=== PATIENT | female | born 2005 | race Two or more races ===

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

== ENCOUNTER 2025-01-27 17:06 | Emergency (ER) | payer MEDICAID, SELFPAY ==
[2025-01-27 17:19] VITALS: BP 118/74; PULSE 91; RESP 18; TEMP 36.8; O2SAT 99; BMI 30.9
--- NOTE | 2025-01-27 17:27 | XR_ITS ---
Examination: Abdomen sonogram, Limited Date and time of exam: January 27, 2025, 1912 hours INDICATIONS: Right upper abdominal pain beginning this morning Technique: Real-time hansen scale transabdominal sonographic images of the upper abdomen obtained. Findings: Absent gallbladder Common bile duct 0.55 cm no stones Pancreatic head 2.1 cm Liver 15.0 cm no liver lesions Normal hepatopedal portal venous flow Patent IVC IMPRESSION: No common bile stones Normal liver
--- NOTE | 2025-01-27 17:27 | XR_ITS ---
Examination: Complete OB ultrasound, less than 14 weeks, transabdominal Date and time of exam: January 27, 2025, 1859 hours INDICATIONS: Pelvic pain today recent positive test Technique: Obstetrical ultrasound images less than 14 weeks performed via transabdominal imaging Findings: A normal shaped single intrauterine gestation is present in the uterus. CRL 0.32 cm corresponds to 6 week 0 day gestational age Cardiac motion 189 bpm Ultrasonographic survey of visible and placental structures unremarkable. Amniotic fluid volume appears appropriate for this estimated gestational age. Right ovary 2.4 cm arterial flow 20 mm corpus luteum cyst Left ovary obscured by bowel gas IMPRESSION: Viable intrauterine gestation 6 weeks 0 days.
--- NOTE | 2025-01-27 17:28 | EDRME_ITS ---
Rapid Medical Screening Exam [facility] Arrival date/time: 01/27/25 17:06 20-year-old female with no known medical history presents to the emergency room with a chief complaint of right upper quadrant abdominal pain and lower back pain x 3 days. Patient is currently 7 weeks . She is a G1, P0. Patient denies any dysuria or vaginal bleeding. I have greeted and performed a focused initial assessment of this patient. A comprehensive ED assessment and evaluation of the patient, analysis of all test results, and completion of the medical decision making process will be conducted by additional ED providers. Chief Complaint: Abdominal Pain Time Seen by Provider: 01/27/25 17:16 Vital signs: Vital Signs Temperature 98.2 F 01/27/25 17:19 Pulse Rate 91 01/27/25 17:19 Respiratory Rate 18 01/27/25 17:19 Blood Pressure 118/74 01/27/25 17:19 Pulse Oximetry (%) 99 01/27/25 17:19 Oxygen Delivery Method Room Air 01/27/25 17:19 Vital signs reviewed by provider: Yes
[2025-01-27 17:40] LABS: Basophils # (Auto) 0.1 Thou/mm3 (0.0-0.2); Basophils % (Auto) 1 % (0-2.5); Eosinophils # (Auto) 0.4 Thou/mm3 (0.0-0.5); Eosinophils % (Auto) 3 % (0-10); Hematocrit 38.9 % (36.0-46.0); Hemoglobin 13.1 g/dL (12.0-16.0); Immature Granulocytes Auto 0.05 Thou/mm3 (0.00-0.00); Lymphocytes # (Auto) 2.1 Thou/mm3 (1.0-4.8); Lymphocytes % (Auto) 15 % (10-50); Mean Corpuscular HGB Conc 33.7 g/dl (31.0-37.0); Mean Corpuscular Hemoglobin 30.2 pg (25.0-35.0); Mean Corpuscular Volume 90 fL (80-100); Monocytes # (Auto) 0.8 Thou/mm3 (0.0-0.8); Monocytes % (Auto) 6 % (0-12); Neutrophils # (Auto) 10.7 Thou/mm3 (1.8-7.7); Neutrophils % (Auto) 76 % (37-80); Nucleated Red Blood Cell # 0.00 Thou/mm3 (0.00-0.00); Nucleated Red Blood Cell % 0 /100 WBC (0); Platelet Count 395 Thou/mm3 (140-440); RDW Standard Deviation 39.8 fL (36.4-46.3); Red Blood Count 4.34 Miln/mm3 (4.00-5.20); White Blood Count 14.1 Thou/mm3 (4.5-11.0)
[2025-01-27 18:03] LABS: Alanine Aminotransferase 22 U/L (10-49); Albumin, Serum 4.6 gm/dL (3.5-5.0); Albumin/Globulin Ratio 1.6 (1.2-2.2); Alkaline Phosphatase 100 U/L (46-116); Anion Gap 9 (7-16); Aspartate Amino Transferase 19 U/L (0-34); BUN/Creatinine Ratio 9 Ratio (12-20); Bilirubin,Total 0.2 mg/dL (0.3-1.2); Blood Urea Nitrogen 6 mg/dL (9-23); Calcium 9.4 mg/dL (8.3-10.6); Calcium (Corrected) 9.4 mg/dL (8.5-10.1); Carbon Dioxide 23.6 mMol/L (20.0-31.0); Chloride 106 mMol/L (98-107); Creatinine (Component) 0.7 mg/dL (0.6-1.3); Estimated Creatinine Clearance 127.9 mL/min (>60); Globulin 2.9 gm/dL (2.3-3.5); Glucose 89 mg/dL (74-106); Lipase 25 U/L (12-53); Osmolality,Calculated 274 (275-295); Potassium 4.4 mMol/L (3.4-5.1); Sodium 139 mMol/L (136-145); Total Protein 7.5 gm/dL (5.7-8.2); eGFR > 60 See Note
[2025-01-27 18:35] LABS: Beta HCG,Quantitative 53132 mIU/mL (<5.0)
[2025-01-27 18:42] LABS: Collection Type, Urine Clean Catch
[2025-01-27 18:47] LABS: Bacteria,Urine Rare; Bilirubin,Urine Negative (Negative); Blood,Urine Negative (Negative); Clarity,Urine Clear (Clear/Hazy); Color,Urine Lt-Yellow (Lt Yel-Yel); Glucose, Urine Negative (Negative); Ketones,Urine Negative (Negative); Leukocyte Esterase,Urine Positive (Negative); Nitrite,Urine Negative (Negative); PH,Urine 6.5 (5.0-7.0); Protein,Urine Negative (Neg - Trace); RBC,Urine 4 /hpf (0-3); Specific Gravity,Urine 1.025 (1.001-1.035); Squamous Epithelial Cell,Urine 11 /hpf (0-5); Urobilinogen,Urine 2.0 mg/dL (0.0-1.0); WBC,Urine 5 /hpf (0-5)
--- NOTE | 2025-01-27 20:07 | EDNOTE_ITS ---
ED Abdominal Pain RME/HPI General Chief Complaint: Abdominal Pain Stated complaint: 7 weeks OB, abdominal pain Time seen by provider: 01/27/25 17:16 Arrival date/time: 01/27/25 17:06 RME / HPI RME / HPI narrative: 20-year-old female with no known medical history presents to the emergency room with a chief complaint of right upper quadrant abdominal pain and lower back pain x 3 days. Patient is currently 7 weeks . She is a G1, P0. Patient denies any dysuria or vaginal bleeding. Denies any fever denies any other complaints no medication was taken prior to arrival. Related Data Previous Rx's ?Medication ?Instructions ?Recorded doxylamine 10 mg-pyridoxine (vit 1 tab PO BID PRN naus ea and 01/27/25 B6) 10 mg tablet,delayed release vomiting #30 tabs (Diclegis) Allergies Allergy/AdvReac Type Severity Reaction Status Date / Time No Known Allergies Allergy Verified 01/27/25 17:12 Review of Systems Review of Systems Narrative Review of Systems: Review of system reviewed and within normal limits except mentioned in HPI ED Exam Narrative Physical exam: VITAL SIGNS: Reviewed. GENERAL APPEARANCE: Alert and interactive, follows commands, no acute distress, HEAD AND FACE: Non-traumatic. ENT: PERRL, pink conjunctivitis, eyelid no trauma, Mucous membrane moist. NECK: Supple, nontender, no nuchal rigidity. CHEST: No tenderness, no crepitus, no paradoxical movement, no retractions. LUNGS: Clear, well ventilated, symmetric, no rales, no wheezing, no ronchi, no stridor, good breath sounds bilaterally. HEART: Regular rate, regular rhythm, no murmur, no gallops. ABDOMEN: Soft, positive bowel sounds, nondistended, no guarding, nontender, no rebound, no masses, RECTAL: Deferred. GENITAL: Deferred. NEUROLOGICAL: Gross motor function intact sensory function intact, Appropriate for age. MUSCULOSKELETAL: low back nontender, full range of motion. EXTREMITIES: Nontender, full range of motion. SKIN: Color pink, dry, no rash, no lacerations, no abrasions, no contusions. LYMPHATICS: Deferred. Course Quality Measures none Orders Category Date Time Status US OB <= 14 weeks fetus Stat Exams 01/27/25 17:27 Completed US gall bladder Stat Exams 01/27/25 17:27 Completed ABO/RH Type Stat Lab 01/27/25 17:31 Completed Beta HCG,Quantitative Stat Lab 01/27/25 17:31 Completed CBC Stat Lab 01/27/25 17:31 Completed CMP [Comprehensive Metabolic Panel] Stat Lab 01/27/25 17:31 Completed Lipase Stat Lab 01/27/25 17:31 Completed UA [Urinalysis] Stat Lab 01/27/25 18:10 Completed Vital Signs Vital signs: Vital Signs Temperature 98.2 F 01/27/25 17:19 Pulse Rate 91 01/27/25 17:19 Respiratory Rate 18 01/27/25 17:19 Blood Pressure 118/74 01/27/25 17:19 Pulse Oximetry (%) 99 01/27/25 17:19 Oxygen Delivery Method Room Air 01/27/25 17:19 Abdominal Pain MDM MDM Narrative MDM Narrative:: 20-year-old female with no known medical history presents to the emergency room with a chief complaint of right upper quadrant abdominal pain and lower back pain x 3 days. Patient is currently 7 weeks . She is a G1, P0. Patient denies any dysuria or vaginal bleeding. Denies any fever denies any other complaints no medication was taken prior to arrival. On reevaluation, patient told me that her epigastric pain is totally gone. Patient's workup today all came back normal including normal gallbladder ultrasound. Ultrasound of the OB also showed single live intrauterine gestation about 6 weeks. Patient's workup CBC CMP urinalysis all came back unremarkable. Patient was advised to avoid drinking soda drinking juice or eating, fat, spicy food. Patient will be sent home on Diclegis for nausea. She was advised to closely follow-up with [facility]. Patient data External records reviewed:: None Clinical information provided by:: patient Social determinants that could affect healthcare access:: none Patient has the following chronic illnesses:: None How is presenting disease/condition affected by chronic disease/condition?: no chronic disease Evaluation data The following diagnostics were reviewed and interpreted by me:: lab results and radiology exam(s) Lab and/or radiology exams considered but not ordered:: None Interpretation Summary: See results MDM Medications / Prescriptions Medications or Prescriptions considered but not ordered:: None Medication administrations:: None Consultations Consultation(s) initiated? (list below): No Diagnosis Differential diagnosis abdominal pain: abdominal pain and gastroenteritis Most likely diagnosis given after review of the tests above:: Epigastric pain, 6 weeks Admission Indicated Admission indicated?: not indicated Admission Request Was there a request for admission?: No Disposition Plan Disposition Plan: Discharge Discharge Attestation Discharge Attestation: The patient and all family members were given an opportunity to ask questions and understood the discharge instructions. Discharge instructions specifically effects, indications for sooner follow up or return to the emergency department, and the expected course of current diagnosis. Patient condition: Stable Discharge Plan Plan Patient Disposition: HOME (Self Care) Discharge Disposition comment: Stable Prescriptions/Referrals Prescriptions/Med Rec: New doxylamine-pyridoxine (vit B6) [Diclegis] 10-10 mg tablet,delayed release (DR/EC) 1 tab PO BID PRN (Reason: nausea and vomiting) Qty: 30 0RF Referrals: No Primary/Family,Physician [Primary Care Provider] - In 1 week Problem List Clinical Impression: Nausea & vomiting, Acute epigastric pain, Patient/Caregiver Discharge Instructions Discharge Activity: activity as tolerated Education Materials: First Trimester Additional Instructions: Thank you for the opportunity for serving you today. You are stable for discharged . You are advised to: Follow-up with your PCP in 1 to 2 days Return to ED for worsening of symptoms Increase oral fluids Take medication as prescribed Print Language: Thai Stand Alone Forms: Terri Award Info., Patient Portal Info Letter DEV/SUZIE Supervising Physician DEV/SUZIE Supervising Physician: Dr Roach
== END 2025-01-27 20:20 | disposition home or self-care (01) ==
PROVIDERS: Nurse Practitioner Family; Emergency Provider Emergency Medicine
DX: O26.891 Other specified pregnancy related conditions, first trimester (principal); O21.9 Vomiting of pregnancy, unspecified; R10.13 Epigastric pain; R10.11 Right upper quadrant pain; Z3A.01 Less than 8 weeks gestation of pregnancy
CPT/HCPCS: 36415; 76705; 76801; 80053; 81001; 83690; 84702; 85025; 86900; 86901; 99283

== ENCOUNTER → 2025-02-07 | Outpatient (BNVA) | payer MEDICAID, SELFPAY | END | disposition home or self-care (01) | PROVIDERS: PCP Nurse Practitioner Family; Referring Provider Nurse Practitioner Family; Visit Provider Nurse Practitioner Family | DX: Z00.01 Encounter for general adult medical examination with abnormal findings (principal); Z3A.09 9 weeks gestation of pregnancy; E66.09 Other obesity due to excess calories; Z68.30 Body mass index [BMI] 30.0-30.9, adult; Z13.220 Encounter for screening for lipoid disorders; Z13.29 Encounter for screening for other suspected endocrine disorder | CPT/HCPCS: 99173; 99214 ==

== ENCOUNTER 2025-02-10 20:21 | Emergency (ER) | payer MEDICAID, SELFPAY ==
[2025-02-10 20:24] VITALS: BMI 30.1
[2025-02-10 21:46] VITALS: BP 133/68; PULSE 83; RESP 18; TEMP 36.9; O2SAT 99
--- NOTE | 2025-02-10 22:09 | XR_ITS ---
Examination: Complete OB ultrasound, less than 14 weeks, transabdominal Date and time of exam: February 10, 2025 at 10:26 PM INDICATIONS: Vaginal bleeding today Technique: Obstetrical ultrasound images less than 14 weeks performed via transabdominal imaging Findings: A normal shaped single intrauterine gestation is present in the uterus. CRL 2.0 cm corresponds to 8 weeks 4 days gestational age Cardiac motion 167 BPM Ultrasonographic survey of visible and placental structures unremarkable. Amniotic fluid volume appears appropriate for this estimated gestational age. Right ovary 3.6 cm arterial flow 18 mm cyst Left ovary 2.4 cm marker flow IMPRESSION: Viable intrauterine gestation 8 weeks 4 days.
--- NOTE | 2025-02-10 22:10 | PD.EDRME ---
Rapid Medical Screening Exam [facility] Arrival date/time: 02/10/25 20:21 20F at approximately 9 weeks and with no significant PMH presents to ED with 1 day of pelvic pain/cramping and vaginal spotting. Patient denies dysuria and recently been checked for STDs. Chief Complaint: General Adult/Misc Complain Time Seen by Provider: 02/11/25 02:47 Vital signs: Vital Signs Temperature 98.4 F 02/10/25 21:46 Pulse Rate 83 02/10/25 21:46 Respiratory Rate 18 02/10/25 21:46 Blood Pressure 133/68 H 02/10/25 21:46 Pulse Oximetry (%) 99 02/10/25 21:46 Oxygen Delivery Method Room Air 02/10/25 21:46
[2025-02-10 22:54] LABS: Collection Type, Urine Clean Catch
[2025-02-10 23:01] LABS: Basophils # (Auto) 0.0 Thou/mm3 (0.0-0.2); Basophils % (Auto) 0 % (0-2.5); Eosinophils # (Auto) 0.2 Thou/mm3 (0.0-0.5); Eosinophils % (Auto) 2 % (0-10); Hematocrit 36.5 % (36.0-46.0); Hemoglobin 12.5 g/dL (12.0-16.0); Immature Granulocytes Auto 0.04 Thou/mm3 (0.00-0.00); Lymphocytes # (Auto) 1.8 Thou/mm3 (1.0-4.8); Lymphocytes % (Auto) 14 % (10-50); Mean Corpuscular HGB Conc 34.2 g/dl (31.0-37.0); Mean Corpuscular Hemoglobin 30.3 pg (25.0-35.0); Mean Corpuscular Volume 89 fL (80-100); Monocytes # (Auto) 0.6 Thou/mm3 (0.0-0.8); Monocytes % (Auto) 4 % (0-12); Neutrophils # (Auto) 10.4 Thou/mm3 (1.8-7.7); Neutrophils % (Auto) 80 % (37-80); Nucleated Red Blood Cell # 0.00 Thou/mm3 (0.00-0.00); Nucleated Red Blood Cell % 0 /100 WBC (0); Platelet Count 371 Thou/mm3 (140-440); RDW Standard Deviation 39.0 fL (36.4-46.3); Red Blood Count 4.12 Miln/mm3 (4.00-5.20); White Blood Count 12.9 Thou/mm3 (4.5-11.0)
[2025-02-10 23:11] LABS: Bacteria,Urine Rare; Bilirubin,Urine Negative (Negative); Blood,Urine Negative (Negative); Clarity,Urine Clear (Clear/Hazy); Color,Urine Colorless (Lt Yel-Yel); Glucose, Urine Negative (Negative); Hyaline Casts,Urine < 1 /hpf (0-1); Ketones,Urine Trace (Negative); Leukocyte Esterase,Urine Positive (Negative); Nitrite,Urine Negative (Negative); PH,Urine 6.5 (5.0-7.0); Protein,Urine Negative (Neg - Trace); RBC,Urine 1 /hpf (0-3); Specific Gravity,Urine 1.008 (1.001-1.035); Squamous Epithelial Cell,Urine 4 /hpf (0-5); Urobilinogen,Urine Negative mg/dL (0.0-1.0); WBC,Urine 11 /hpf (0-5)
[2025-02-10 23:41] LABS: Alanine Aminotransferase 65 U/L (10-49); Albumin, Serum 4.5 gm/dL (3.5-5.0); Albumin/Globulin Ratio 1.7 (1.2-2.2); Alkaline Phosphatase 100 U/L (46-116); Anion Gap 11 (7-16); Aspartate Amino Transferase 30 U/L (0-34); BUN/Creatinine Ratio 8 Ratio (12-20); Bilirubin,Total 0.4 mg/dL (0.3-1.2); Blood Urea Nitrogen < 5 mg/dL (9-23); Calcium 9.4 mg/dL (8.3-10.6); Calcium (Corrected) 9.4 mg/dL (8.5-10.1); Carbon Dioxide 21.4 mMol/L (20.0-31.0); Chloride 107 mMol/L (98-107); Creatinine (Component) 0.6 mg/dL (0.6-1.3); Estimated Creatinine Clearance 147.1 mL/min (>60); Globulin 2.7 gm/dL (2.3-3.5); Glucose 80 mg/dL (74-106); Osmolality,Calculated 273 (275-295); Potassium 4.4 mMol/L (3.4-5.1); Sodium 139 mMol/L (136-145); Total Protein 7.2 gm/dL (5.7-8.2); eGFR > 60 See Note
[2025-02-11 01:23] LABS: Beta HCG,Quantitative 161233 mIU/mL (<5.0)
--- NOTE | 2025-02-11 02:49 | EDNOTE_ITS ---
ED Female Urogenital RME/HPI General Chief complaint: General Adult/Misc Complain Stated complaint: VAGINAL DISCHARGED Time Seen by Provider: 02/11/25 02:47 Arrival date/time: 02/10/25 20:21 20F at approximately 9 weeks and with no significant PMH presents to ED with 1 day of pelvic pain/cramping and vaginal spotting (brownish color and not foul-smelling). Patient denies dysuria and recently been checked for STDs. Limitations: no limitations RME / HPI RME / HPI Narrative: 02/10/25 20:21 Related Data Home Medications ?Medication ?Instructions ?Recorded ?Confirmed [id number] 3 fatty no.1 27 cap PO 02/07/2511/27 mg-1 mg-300 mg capsule Previous Rx's ?Medication ?Instructions ?Recorded cephalexin 500 mg capsule 500 mg PO TID 5 days #15 cap s 02/11/25 Allergies Allergy/AdvReac Type Severity Reaction Status Date / Time No Known Allergies Allergy Verified 02/10/25 20:22 Review of Systems Review of Systems Systems Reviewed: All systems reviewed, normal except as documented Constitutional Constitutional: Reports system reviewed and no additional complaints, except as documented, Denies fever(s) and Denies headache(s) ENT Ears, Nose, Mouth, and Throat: Denies disequilibrium and Denies headache(s) Cardiovascular Cardiovascular: Reports system reviewed and no additional complaints, except as documented, Denies chest pain and Denies dyspnea Respiratory Respiratory: Reports system reviewed and no additional complaints, except as documented, Denies cough and Denies dyspnea Gastrointestinal Gastrointestinal: Reports system reviewed and no additional complaints, except as documented, Denies abdominal pain, Denies nausea and Denies vomiting Genitourinary Genitourinary: Reports as per HPI, Reports abnormal vaginal bleeding and Reports pelvic pain Neurologic Neurologic: Reports system reviewed and no additional complaints, except as documented, Denies confusion, Denies disequilibrium and Denies headache(s) Psychiatric Psychiatric: Denies confusion Past Medical History Past Medical History NEUROLOGIC: Negative Neurological Disorders or Seizures CARDIAC: Negative Cardiac Disorders or Congestive Heart Failure RESPIRATORY: Negative Chronic Obstructive Pulmonary Disease (COPD) GASTROINTESTINAL: Positive Gastrointestinal Disorders and Gall Bladder Disease GENITOURINARY: Negative Genitourinary Disorders or Renal Disease MUSCULOSKELETAL: Negative Musculoskeletal Disorders ENDOCRINE: Negative Endocrine Disorders, Diabetes Mellitus Type 1 or Diabetes Mellitus Type 2 HEMATOLOGIC: Negative Blood Disorders, Anemia or Clotting Problems OTHER HISTORY: Negative Hospitalization, Falls, Blood Transfusions, Anesthesia Reactions, Chicken Pox, Measles or Cancer Family History FAMILY HISTORY: Positive Family Surgery; Negative Family Psychiatric Problems, Family Respiratory Disorders, Family Cardiac Disorders, Family Gastrointestinal Problems or Family Anesthesia Reaction Social History SMOKING STATUS: Never smoker SECOND HAND EXPOSURE: No ED Exam General Limitations: Present no limitations General appearance: Present alert and in no apparent distress Head Head exam: Present atraumatic Eye Eye exam: Present normal appearance, PERRL and EOMI ENT ENT exam: Present normal exam, normal oropharynx and mucous membranes moist Neck Neck exam: Present normal inspection, full ROM and trachea midline Chest Chest inspection: Present normal inspection and symmetric chest wall rise Respiratory Respiratory exam: Present normal lung sounds bilaterally Cardiovascular Cardiovascular exam: Present regular rate, normal rhythm and normal heart sounds Abdominal Exam Abdominal exam: Present soft and normal bowel sounds Extremities Exam Extremities exam: Present normal inspection and full ROM Back Exam Back exam: Present normal inspection and full ROM Neurological Exam Neurological exam: Present alert, oriented X3 and CN II-XII intact Psychiatric Psychiatric exam: Present normal affect and normal mood Skin Skin exam: Present warm, dry, intact and normal color Course Quality Measures none Orders Category Date Time Status US OB <= 14 weeks fetus Stat Exams 02/10/25 22:09 Completed ABO/RH Type Stat Lab 02/10/25 22:40 Completed Beta HCG,Quantitative Stat Lab 02/10/25 22:40 Completed CBC Stat Lab 02/10/25 22:40 Completed CMP [Comprehensive Metabolic Panel] Stat Lab 02/10/25 22:40 Completed UA [Urinalysis] Stat Lab 02/10/25 22:48 Completed Urine Culture Stat Lab 02/10/25 22:48 Received Vital Signs Vital signs: Vital Signs Temperature 98.4 F 02/10/25 21:46 Pulse Rate 83 02/10/25 21:46 Respiratory Rate 18 02/10/25 21:46 Blood Pressure 133/68 H 02/10/25 21:46 Pulse Oximetry (%) 99 02/10/25 21:46 Oxygen Delivery Method Room Air 02/10/25 21:46 O2 at 99% on RA and WNLs Urogenital - Female MDM Narrative MDM Narrative:: 20F at approximately 9 weeks and with no significant PMH presents to ED with 1 day of pelvic pain/cramping and vaginal spotting (brownish color and not foul-smelling). Patient denies dysuria and recently been checked for STDs. Physical exam reveals well-appearing female. Patient is afebrile, calm, and alert. US reveals normal IUP w/ FHR. Beta HCG WNLs. Minimal leukocytosis, but no anemia. UA mild WBCs. Will treat given status. A+ blood type. CMP unremarkable. Patient states she has her first OB appt next week and will follow-up with them. Patient data External records reviewed:: [facility] previous records Clinical information provided by:: patient Social determinants that could affect healthcare access:: none Patient has the following chronic illnesses:: none How is presenting disease/condition affected by chronic disease/condition?: no chronic disease Evaluation data The following diagnostics were reviewed and interpreted by me:: lab results and radiology exam(s) Lab and/or radiology exams considered but not ordered:: ordered Interpretation Summary: above Medications / Prescriptions Medications or Prescriptions considered but not ordered:: not ordered Medication administrations:: n/a Consultations Consultation(s) initiated? (list below): No Diagnosis Urogenital Female Differential Diagnosis: urinary tract infection, bacterial vaginosis, trichomoniasis, cervicitis, ovarian cyst, vaginitis, ruptured ovarian cyst, cyst of Bartholin's gland, cystitis, dysmenorrhea and other (asymptomatic bacteriuria during ) Most likely diagnosis given after review of the tests above:: asymptomatic bacteriuria during Admission Indicated Admission indicated?: not indicated Admission Request Was there a request for admission?: No Disposition Plan Disposition Plan: Discharge Discharge Attestation Discharge Attestation: The patient and all family members were given an opportunity to ask questions and understood the discharge instructions. Discharge instructions specifically effects, indications for sooner follow up or return to the emergency department, and the expected course of current diagnosis. Patient condition: Stable Discharge Plan Plan Patient Disposition: HOME (Self Care) Discharge Disposition comment: Stable Prescriptions/Referrals Prescriptions/Med Rec: New cephalexin 500 mg capsule 500 mg PO TID 5 Days Qty: 15 0RF No Action [id number] 3 fatty no.1 27-1-300 mg capsule PO Referrals: [facility] SKIRT PANEL ASSEMBLER,Keri Mckay SKIRT PANEL ASSEMBLER [Primary Care Provider] - In 1 week Problem List Clinical Impression: Asymptomatic bacteriuria during Patient/Caregiver Discharge Instructions Additional Instructions: Please follow-up with PCP/[facility]YGN within 24-48 hours and return immediately if symptoms worsen. Print Language: Uzbek Stand Alone Forms: Patient Portal Info Letter PA/COFFEE MAKER SERVICER Supervising Physician PA/COFFEE MAKER SERVICER Supervising Physician: Dr. Alvarez
[2025-02-11 02:57] VITALS: BP 99/68; PULSE 70; RESP 18; TEMP 36.7; O2SAT 99
== END 2025-02-11 03:00 | disposition home or self-care (01) ==
PROVIDERS: Physician Assistant; Emergency Provider Emergency Medicine; PCP Nurse Practitioner Family
DX: O99.891 Other specified diseases and conditions complicating pregnancy (principal); R82.71 Bacteriuria; Z3A.08 8 weeks gestation of pregnancy
CPT/HCPCS: 36415; 76801; 80053; 81001; 84702; 85025; 86900; 86901; 87077; 87086; 87186; 99283

== ENCOUNTER 2025-02-24 10:53 | Outpatient (AMB) | payer MEDICAID, SELFPAY ==
[2025-02-24 11:21] VITALS: BP 120/79; PULSE 96; RESP 17; TEMP 36.5; O2SAT 98; BMI 30.2
--- NOTE | 2025-02-24 11:21 | AMB.OBINITIA ---
Vital Signs 02/24/25 11:21 Height 1.6 m Height Method Measured Weight 77.337 kg Weight Measurement Method Standing Scale BMI 30.2 BP 120/79 Blood Pressure Source Automatic Cuff Blood Pressure Location Right Upper Arm Position Sitting Respiration 17 Pulse 96 Pulse Source Monitor Temp 97.7 F Temp Source Temporal Artery Scan Pulse Oximetry (%) 98 Oxygen Delivery Method Room Air Allergies/Home Meds Allergies & Medications Allergies No Known Allergies Allergy (Verified 02/24/25 11:22) Medication Reconciliation [id number]-bhmj-PM-omega 3 fatty no.1 27 mg-1 mg-300 mg capsule cap PO 02/07/25 [History Confirmed 02/24/25] Intake Visit Data Collection New Patient or Established: Established Patient (seen at [facility] within 3 years) Reason for Visit:: OBI Consent obtained for Telemed Visit: No Seen by Clinical Staff ONLY (RN/MA): No Clinical Manager Home Care Required: No Do You Feel Safe at Home: Yes Authorities Contacted: N/A PCP or OBGYN visit in last 3 months: Yes Date of Last PCP or OBGYN visit: 02/11/25 Hx Now: Yes Are you currently on any form of Control: No Last menstrual period: 12/09/24 Pain Present Currently: No Pain Scale Used: Spears-Rhodes/Numerical Pain scale:: 0 Smoking Status Smoking Status: Never smoker Questionnaires Covid-19 Vaccine Questionnaire Has patient been vacinated for Covid-19 Have you been vacinated for Covid-19: Yes PHQ-9 PHQ-2 Over the last 2 weeks, how often have you been bothered by any of the following problems? 1. Little interest or pleasure in doing things: not at all PHQ-9 3. Trouble falling or staying asleep, or sleeping too much: Not at all 4. Feeling tired or having little energy: Not at all 5. Poor appetite or overeating: Not at all 6. Feeling bad about yourself - or that you are a failure or have let yourself or your family down: Not at all 7. Trouble concentrating on things, such as reading the newspaper or watching television: Not at all 8. Moving or speaking so slowly that other people could have noticed? - Or the opposite - being so fidgety or restless that you have been moving around a lot more than usual: not at all 9. Thoughts that you would be better off or of hurting yourself in some way: Not at all If you checked off any problems, how difficult have these problems made it for you to do your work, take care of things at home, or get along with other people?: not difficult at all Source: Developed by Drs. Romero Morales, Gretel Scanlon, Royce Jmaes and colleagues, with an educational brittany from [employer]. Social History Living Situation History Lives With: Significant Other Housing: House Tobacco History Smoking Status: Never smoker Second Hand Smoke Exposure: No Alcohol History Alcohol Intake: Never Substance Use History Substance Use: NONE Domestic Abuse History Do You Feel Safe at Home: Yes History of Present Illness HPI Narrative 20 yo for OBI. lmp 12/09/24. EDC: 09/15/25. c/o occasional nausea. taking PNV. denies sab complaints. Denies existence of PMH. Smokes THC, stopped with . denies surgery. Happy with . 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 denies vag bleeding,no cramps, no leaking. no sab complaints, slight nausea schedule MFM anatomy scan. discuss SAB precaution, continue pnv, hydrate. . OB panel with NIPT and carrier screen. rtc 4 wk Menstrual History Menstrual reliability: definite Flow: normal Menstrual regularity: regular Monthly: Yes Age at menarche: 15 On control pills at conception: No Date of positive home test: 01/12/25 OB History : 1 Para: 0 Hx # Pregnancies: 0 Hx Total # of Abortions (Spontaneous & Elective): 0 # of Living Children: 0 Infection History & Risk Evaluation History of STDs: none HIV risk evaluation: low risk Hepatitis B risk evaluation: low risk Patient or partner has history of Genital Herpes: No Genetic Screening & History Genetic Screening/Teratology Counseling - Includes patient, baby's father, or anyone in either family with: 1. Patient's age 35 years or older as of estimated date of delivery: No 2. Thalassemia (Kuwaiti, Latvian, Mediterranean, or Background); MCV less than 80: No 3. Neural Tube Defect (Meningomyelocele, Spina Bifida, or Anencephaly): No 4. Congenital Heart Defect: No 5. Down Syndrome: No 6. Tristian-Sachs (Ashkenazi Confucianist, Cajun, Romanian Bullitt): No 7. Dot Disease (Ashkenazi Confucianist): No 8. Familial Dysautonomia (Ashkenazi Confucianist): No 9. Sickle Cell Disease or Trait (): No 10. Hemophilia or other blood disorders: No 11. Muscular Dystrophy: No 12. Cystic Fibrosis: No 13. Lamoille's Chorea: No 14. Mental Retardation/Autism: No 15. Other inherited genetic or chromosomal disorder: No 16. Maternal Metabolic Disorder (EG,TYPE 1 Diabetes, PKU): No 17. Patient or baby's father had a child with defects not listed above: No 18. Recurrent loss or a stillbirth: No 19. Medications (including supplements, vitamins, herbs or otc drugs)/illicit/recreational drugs/alcohol since last menstrual period: No 20. Any other: No Infection History 1. Live with someone with TB or exposed to TB: No 2. Rash or viral illness since last menstrual period: No 3. Hepatitis B,C: No Other (see comments) Source: [employer] Review of Systems Review of Systems Systems Reviewed: All systems reviewed, normal except as documented Exam General Limitations: no limitations General Appearance: alert, in no apparent distress, comfortable, cooperative, healthy appearing, well developed and well groomed Head Head exam: atraumatic, normocephalic and normal inspection ENT ENT exam: Present normal exam, normal oropharynx and mucous membranes moist Chest Chest inspection: Present normal inspection and symmetric chest wall rise Resp Respiratory exam: Present normal lung sounds bilaterally Card Cardiovascular exam: Present regular rate, normal rhythm and normal heart sounds Abdominal Abdominal exam: Present soft and normal bowel sounds Psych Psychiatric exam: Present normal affect and normal mood Office Procedures OB Clinic LOC & Office Proc's Nursing/Assessment Patient Status: Established Patient OB Clinic Nursing Assessment: Medication Reconciliation, Update PMH in EMR and Vital Signs OB Clinic Coordination of Care: Complex Care and Chronic Disease 1-5, Consent,records obtained, informed consent, 4+ Authorizations needed, Lab and Imaging orders and Results/Orders obtained Special Needs: Heart tones Established Patient Charge Established Patient Point Assignment: 135 Established Patient Point Charge: EP Level 4 (120-155) Assessment & Plan Diagnosis / Problem List (1) Encounter for supervision of high risk in first trimester, antepartum: Status: Acute Plan schedule mfm appt. ob panel with NIPT and carrier screen, continue pnv. discuss sab precaution, rtc 4 week Additional Plan Follow Up: 4 Weeks (obc)
== END 2025-02-24 11:44 | disposition home or self-care (01) ==
LOC: HODSOBC 10:53
PROVIDERS: PCP Nurse Practitioner Family; Referring Provider Nurse Practitioner Family; Supervising Provider Advanced Practice Midwife; Visit Provider Advanced Practice Midwife
DX: O09.91 Supervision of high risk pregnancy, unspecified, first trimester (principal); Z3A.11 11 weeks gestation of pregnancy
CPT/HCPCS: 99214; G0463

== ENCOUNTER 2025-03-27 12:53 | Outpatient (AMB) | payer MEDICAID, SELFPAY ==
[2025-03-27 13:00] VITALS: BP 120/73; PULSE 85; RESP 16; TEMP 36.6; O2SAT 98; BMI 30.7
--- NOTE | 2025-03-27 13:00 | OBCLNT_ITS ---
Vital Signs 03/27/25 13:00 Height 1.6 m Height Method Stated Weight 78.585 kg Weight Measurement Method Standing Scale BMI 30.7 BP 120/73 Blood Pressure Source Automatic Cuff Blood Pressure Location Left Upper Arm Position Sitting Respiration 16 Pulse 85 Pulse Source Monitor Temp 98 F Temp Source Oral Pulse Oximetry (%) 98 Oxygen Delivery Method Room Air Allergies/Home Meds Allergies & Medications Allergies No Known Allergies Allergy (Verified 03/27/25 13:01) Medication Reconciliation PLS-unnu-RB-omega 3 fatty no.1 27 mg-1 mg-300 mg capsule cap PO 02/07/25 [History Confirmed 03/27/25] Intake Visit Data Collection New Patient or Established: Established Patient (seen at [facility] within 3 years) Reason for Visit:: CARE Seen by Clinical Staff ONLY (RN/MA): No Client Finance Analyst Required: No Do You Feel Safe at Home: Yes Authorities Contacted: N/A PCP or OBGYN visit in last 3 months: Yes Hx Now: Yes Are you currently on any form of Control: No Pain Present Currently: No Pain Scale Used: Spears-Rhodes/Numerical Pain scale:: 0 Smoking Status Smoking Status: Never smoker Questionnaires Covid-19 Vaccine Questionnaire Has patient been vacinated for Covid-19 Have you been vacinated for Covid-19: Yes PHQ-9 PHQ-2 Over the last 2 weeks, how often have you been bothered by any of the following problems? 1. Little interest or pleasure in doing things: not at all 2. Feeling down, depressed, or hopeless: not at all Total score: 0 PHQ-9 3. Trouble falling or staying asleep, or sleeping too much: Not at all 4. Feeling tired or having little energy: Not at all 5. Poor appetite or overeating: Not at all 6. Feeling bad about yourself - or that you are a failure or have let yourself or your family down: Not at all 7. Trouble concentrating on things, such as reading the newspaper or watching television: Not at all 8. Moving or speaking so slowly that other people could have noticed? - Or the opposite - being so fidgety or restless that you have been moving around a lot more than usual: not at all 9. Thoughts that you would be better off or of hurting yourself in some way: Not at all Total score: 0 Source: Developed by Drs. Romero Morales, Gretel Scanlon, Royce James and colleagues, with an educational brittany from [employer]. 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 denies vag bleeding,no cramps, no leaking. no sab complaints, slight nausea schedule MFM jose meg scan. discuss SAB precaution, continue pnv, hydrate. . OB panel with NIPT and carrier screen. rtc 4 wk 03/27/25 -?-?-?-?-?-?-?-?-?-?-?-?- 15w 3d 78.585 kg 120/73 absent unknown 15 145 absent Doing well. Denies SAB complaints. MFM sono is pending. aFP today. Follow-up on MFM appointment. Discussed diet and weight. SAB precautions. Return in 4 weeks OB check DILAN Calculator Estimated Delivery Date Method Current WG Current Estimate 09/15/25 LMP (Certain) 15w 3d Notes Visit Date: 03/27/25 Last Updated by: Franci Lino, FARHANA A+,abs-, rpr;;nr, rub imm, hbsag-, hiv-, hc-, GC/CT-, UT-. + UTI/treated with macrobid, NIPT/carrier screen- Visit Date: 02/24/25 Last Updated by: Franci Lino CNM 20 yo . lmp 12/09/24, EDC: 07/18/24 Office Procedures OB Clinic LOC & Office Proc's Nursing/Assessment Patient Status: Established Patient OB Clinic Nursing Assessment: Medication Reconciliation, Update PMH in EMR and Vital Signs OB Clinic Coordination of Care: Complex Care and Chronic Disease 1-5, Consent,records obtained, informed consent, Education Simp Pt/Fam, 1 Ins Authorization, Lab and Imaging orders, Results/Orders obtained and Staff clarify orders Special Needs: Heart tones Established Patient Charge Established Patient Point Assignment: 150 Established Patient Point Charge: EP Level 4 (120-155) Assessment & Plan Diagnosis / Problem List (1) Encounter for supervision of high risk in second trimester, antepartum: Status: Acute Plan MFM appointment pending, discuss labs. AFP prending. discuss sab precaution, rtc 4 week obc Additional Plan Follow Up: 4 Weeks (obc)
== END 2025-03-27 14:34 | disposition home or self-care (01) ==
LOC: HODSOBC 12:53
PROVIDERS: PCP Advanced Practice Midwife; Referring Provider Advanced Practice Midwife; Supervising Provider Advanced Practice Midwife; Visit Provider Advanced Practice Midwife
DX: O09.92 Supervision of high risk pregnancy, unspecified, second trimester (principal); Z3A.15 15 weeks gestation of pregnancy
CPT/HCPCS: 99214; G0463

== ENCOUNTER 2025-04-15 20:40 | Emergency (ER) | payer MEDICAID, SELFPAY ==
[2025-04-15 20:54] VITALS: BP 118/75; PULSE 86; RESP 16; TEMP 36.8; O2SAT 99
--- NOTE | 2025-04-15 21:07 | PD.EDABDPN ---
ED Abdominal Pain RME/HPI General Chief Complaint: Abdominal Pain Stated complaint: LOWER ABD PRESSURE, 19WKS Time seen by provider: 04/15/25 20:42 Arrival date/time: 04/15/25 20:40 Limitations: no limitations RME / HPI RME / HPI narrative: 20-year-old female who is 19 weeks today complaining of abdominal and back pain x 2 days. Feels normal movement. But states the soreness since yesterday to her anterior abdomen feels like it radiates down into her vagina. No bleeding. No fever. No burning with urination. No discharge. Related Data Home Medications ?Medication ?Instructions ?Recorded ?Confirmed SVO-vbho-UB-omega 3 fatty no.1 27 cap PO 02/07/25 03/27/25 mg-1 mg-300 mg capsule Previous Rx's ?Medication ?Instructions ?Recorded acetaminophen 500 mg tablet 500 mg PO Q6H PRN fever or pain 04/15/25 (Tylenol Extra Strength) #30 tabs Allergies Allergy/AdvReac Type Severity Reaction Status Date / Time No Known Allergies Allergy Verified 04/15/25 20:41 Review of Systems Review of Systems Systems Reviewed: All systems reviewed, normal except as documented Constitutional Constitutional: Denies fever(s) Gastrointestinal Gastrointestinal: Reports as per HPI Genitourinary Genitourinary: Reports as per HPI ED Exam General Limitations: Present no limitations General appearance: Present alert and in no apparent distress Head Head exam: Present atraumatic Eye Eye exam: Present normal appearance, PERRL and EOMI Respiratory Respiratory exam: Present normal lung sounds bilaterally Cardiovascular Cardiovascular exam: Present regular rate, normal rhythm and normal heart sounds Abdominal Exam Abdominal exam: Present normal bowel sounds and other ( abdomen presenting appropriately for weeks, positive heart tones) External exam: Present other (declined exam ) Extremities Exam Extremities exam: Present normal inspection and full ROM Back Exam Back exam: Present normal inspection and full ROM Psychiatric Psychiatric exam: Present normal affect and normal mood Skin Skin exam: Present warm, dry, intact and normal color Course Quality Measures none Orders Category Date Time Status CBC Stat Lab 04/15/25 21:21 Completed CMP [Comprehensive Metabolic Panel] Stat Lab 04/15/25 21:21 Completed Lipase Stat Lab 04/15/25 21:21 Completed UA [Urinalysis] Stat Lab 04/15/25 21:57 Completed Acetaminophen Tab [Tylenol Tab] Med 04/15/25 21:07 Discontinued 650 mg PO X1 ONE Vital Signs Vital signs: Vital Signs Temperature 98.3 F 04/15/25 20:54 Pulse Rate 86 04/15/25 20:54 Respiratory Rate 16 04/15/25 20:54 Blood Pressure 118/75 04/15/25 20:54 Pulse Oximetry (%) 99 04/15/25 20:54 Oxygen Delivery Method Room Air 04/15/25 20:54 Abdominal Pain MDM MDM Narrative MDM Narrative:: Discussed abdominal pain likely related to ligamentous pain. Follow-up with PCP return to ER symptoms worsen Patient data External records reviewed:: [facility] previous records Clinical information provided by:: patient Social determinants that could affect healthcare access:: other (specify) (No PCP appointment on the weekend) Patient has the following chronic illnesses:: How is presenting disease/condition affected by chronic disease/condition?: exacerbated by Evaluation data The following diagnostics were reviewed and interpreted by me:: lab results Lab and/or radiology exams considered but not ordered:: Ultrasound considered however positive heart tones and no bleeding unlikely to change the course of treatment today Interpretation Summary: CBC, CMP, lipase all within normal limits UA showed small hematuria no bacteria Medications / Prescriptions Medications or Prescriptions considered but not ordered:: Opted against narcotics due to Medication administrations:: Medication Administration History Discontinued Medications Acetaminophen (Acetaminophen 325 Mg Tablet) 650 mg PO X1 ONE Stop: 04/15/25 21:08 Last Admin: 04/15/25 21:33 Dose: Not Given Documented By: BD Non-Admin Reason: Patient Refused See above Consultations Consultation(s) initiated? (list below): No Diagnosis Differential diagnosis abdominal pain: abdominal pain and other (UTI, demise, abdominal pain in ) Most likely diagnosis given after review of the tests above:: Abdominal pain in Admission Indicated Admission indicated?: not indicated Admission Request Was there a request for admission?: No Disposition Plan Disposition Plan: Discharge Discharge Attestation Discharge Attestation: The patient and all family members were given an opportunity to ask questions and understood the discharge instructions. Discharge instructions specifically effects, indications for sooner follow up or return to the emergency department, and the expected course of current diagnosis. Patient condition: Stable Discharge Plan Plan Patient Disposition: HOME (Self Care) Discharge Disposition comment: f/u with pcp in 2-3days Prescriptions/Referrals Prescriptions/Med Rec: New acetaminophen [Tylenol Extra Strength] 500 mg tablet 500 mg PO Q6H PRN (Reason: fever or pain) Qty: 30 0RF No Action HOK-clbm-OT-omega 3 fatty no.1 27-1-300 mg capsule PO Referrals: [facility] BUSINESS MANAGEMENT ANALYST,Keri Mckay BUSINESS MANAGEMENT ANALYST [Primary Care Provider, Family Practice] - In 1 week Problem List Clinical Impression: Abdominal pain affecting , Hematuria Patient/Caregiver Discharge Instructions Education Materials: Round Ligament Pain Print Language: Citizen Of [place] Stand Alone Forms: Terri Award Info., Patient Portal Info Letter PA/CENTER M[facility] Supervising Physician PA/CENTER [facility] Supervising Physician: Dr. Pichardo
[2025-04-15 21:26] LABS: Basophils # (Auto) 0.1 Thou/mm3 (0.0-0.2); Basophils % (Auto) 1 % (0-2.5); Eosinophils # (Auto) 0.4 Thou/mm3 (0.0-0.5); Eosinophils % (Auto) 3 % (0-10); Hematocrit 34.8 % (36.0-46.0); Hemoglobin 11.9 g/dL (12.0-16.0); Immature Granulocytes Auto 0.03 Thou/mm3 (0.00-0.00); Lymphocytes # (Auto) 2.2 Thou/mm3 (1.0-4.8); Lymphocytes % (Auto) 18 % (10-50); Mean Corpuscular HGB Conc 34.2 g/dl (31.0-37.0); Mean Corpuscular Hemoglobin 30.3 pg (25.0-35.0); Mean Corpuscular Volume 89 fL (80-100); Monocytes # (Auto) 0.8 Thou/mm3 (0.0-0.8); Monocytes % (Auto) 7 % (0-12); Neutrophils # (Auto) 8.5 Thou/mm3 (1.8-7.7); Neutrophils % (Auto) 71 % (37-80); Nucleated Red Blood Cell # 0.00 Thou/mm3 (0.00-0.00); Nucleated Red Blood Cell % 0 /100 WBC (0); Platelet Count 300 Thou/mm3 (140-440); RDW Standard Deviation 39.8 fL (36.4-46.3); Red Blood Count 3.93 Miln/mm3 (4.00-5.20); White Blood Count 11.9 Thou/mm3 (4.5-11.0)
[2025-04-15 21:50] LABS: Alanine Aminotransferase 14 U/L (10-49); Albumin, Serum 4.5 gm/dL (3.5-5.0); Albumin/Globulin Ratio 1.6 (1.2-2.2); Alkaline Phosphatase 76 U/L (46-116); Anion Gap 10 (7-16); Aspartate Amino Transferase 15 U/L (0-34); BUN/Creatinine Ratio 7 Ratio (12-20); Bilirubin,Total 0.2 mg/dL (0.3-1.2); Blood Urea Nitrogen < 5 mg/dL (9-23); Calcium 10.1 mg/dL (8.3-10.6); Calcium (Corrected) 10.1 mg/dL (8.5-10.1); Carbon Dioxide 23.2 mMol/L (20.0-31.0); Chloride 104 mMol/L (98-107); Creatinine (Component) 0.7 mg/dL (0.6-1.3); Estimated Creatinine Clearance 130.7 mL/min (>60); Globulin 2.9 gm/dL (2.3-3.5); Glucose 80 mg/dL (74-106); Lipase 27 U/L (12-53); Osmolality,Calculated 270 (275-295); Potassium 4.2 mMol/L (3.4-5.1); Sodium 137 mMol/L (136-145); Total Protein 7.4 gm/dL (5.7-8.2); eGFR > 60 See Note
[2025-04-15 22:30] LABS: Collection Type, Urine Clean Catch; WBC,Urine 0 /hpf (0-5)
[2025-04-15 22:37] LABS: Bilirubin,Urine Negative (Negative); Blood,Urine Negative (Negative); Clarity,Urine Clear (Clear/Hazy); Color,Urine Colorless (Lt Yel-Yel); Glucose, Urine Negative (Negative); Ketones,Urine Negative (Negative); Leukocyte Esterase,Urine Negative (Negative); Nitrite,Urine Negative (Negative); PH,Urine 6.5 (5.0-7.0); Protein,Urine Negative (Neg - Trace); RBC,Urine 2 /hpf (0-3); Specific Gravity,Urine 1.003 (1.001-1.035); Squamous Epithelial Cell,Urine 1 /hpf (0-5); Urobilinogen,Urine Negative mg/dL (0.0-1.0)
== END 2025-04-15 23:20 | disposition home or self-care (01) ==
PROVIDERS: Physician Assistant; Emergency Provider Emergency Medicine; PCP Nurse Practitioner Family
DX: O26.892 Other specified pregnancy related conditions, second trimester (principal); Z3A.19 19 weeks gestation of pregnancy
CPT/HCPCS: 36415; 80053; 81001; 83690; 85025; 99283

== ENCOUNTER 2025-04-26 09:04 | Outpatient (AMB) | payer MEDICAID, SELFPAY ==
[2025-04-26 09:15] VITALS: BP 122/75; PULSE 88; RESP 16; TEMP 36.6; O2SAT 98; BMI 30.6
--- NOTE | 2025-04-26 09:15 | OBCLNT_ITS ---
Vital Signs 04/26/25 09:15 Height 1.63 m Height Method Stated Weight 81.363 kg Weight Measurement Method Standing Scale BMI 30.6 BP 122/75 Blood Pressure Source Automatic Cuff Blood Pressure Location Right Upper Arm Position Sitting Respiration 16 Pulse 88 Pulse Source Monitor Temp 97.8 F Temp Source Temporal Artery Scan Pulse Oximetry (%) 98 Oxygen Delivery Method Room Air Allergies/Home Meds Allergies & Medications Allergies No Known Allergies Allergy (Verified 04/26/25 09:17) Medication Reconciliation TBY-xmhz-MO-omega 3 fatty no.1 27 mg-1 mg-300 mg capsule cap PO 02/07/25 [His tory Confirmed 04/26/25] acetaminophen 500 mg tablet (Tylenol Extra Strength) 500 mg PO Q6H PRN fever or pain #30 tabs 04/15/25 [Rx Confirmed 04/26/25] Intake Visit Data Collection New Patient or Established: Established Patient (seen at [facility] within 3 years) Reason for Visit:: OBC Seen by Clinical Staff ONLY (RN/MA): No 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 1. Little interest or pleasure in doing things: not at all 2. Feeling down, depressed, or hopeless: not at all Total score: 0 PHQ-9 3. Trouble falling or staying asleep, or sleeping too much: Not at all 4. Feeling tired or having little energy: Not at all 5. Poor appetite or overeating: Not at all 6. Feeling bad about yourself - or that you are a failure or have let yourself or your family down: Not at all 7. Trouble concentrating on things, such as reading the newspaper or watching television: Not at all 8. Moving or speaking so slowly that other people could have noticed? - Or the opposite - being so fidgety or restless that you have been moving around a lot more than usual: not at all 9. Thoughts that you would be better off or of hurting yourself in some way: Not at all Total score: 0 If you checked off any problems, how difficult have these problems made it for you to do your work, take care of things at home, or get along with other people?: not difficult at all Source: Developed by Drs. Romero Morales, Gretel Scanlon, Royce James and colleagues, with an educational brittany from [employer]. 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 denies vag bleeding,no cramps, no leaking. no sab complaints, slight nausea schedule MFM jose meg scan. discuss SAB precaution, continue pnv, hydrate. . OB panel with NIPT and carrier screen. rtc 4 wk 03/27/25 -?-?-?-?-?-?-?-?-?-?-?-?- 15w 3d 78.585 kg 120/73 absent unknown 15 145 absent Doing well. Denies SAB complaints. MFM sono is pending. aFP today. Follow-up on MFM appointment. Discussed diet and weight. SAB precautions. Return in 4 weeks OB check 04/26/25 -?-?-?-?-?-?-?-?-?-?-?-?- 19w 5d 81.363 kg 122/75 absent unknown 19 145 active No OB complaints. Denies leaking, bleeding, contractions. Maternal- medicine appointment scheduled for June. Keep chago ointment with Dr. Adkins June 07. Discussed labor precautions. Increase fluids. Continue prenatals. Return in 4 weeks OB check DILAN Calculator Estimated Delivery Date Method Current WG Current Estimate 09/15/25 LMP (Certain) 19w 5d Notes Visit Date: 04/26/25 Last Updated by: Franci Lino CNM AFP- Visit Date: 03/27/25 Last Updated by: Franci Lino CNM A+,abs-, rpr;;nr, rub imm, hbsag-, hiv-, hc-, GC/CT-, UT-. + UTI/treated with macrobid, NIPT/carrier screen- Visit Date: 02/24/25 Last Updated by: Franci Lino CNM 20 yo . lmp 12/09/24, EDC: 07/18/24 Office Procedures OBC Clinic LOC & Office Proc's Nursing/Assessment Patient Status: Established Patient OB Clinic Nursing Assessment: Medication Reconciliation, Update PMH in EMR and Vital Signs OB Clinic Coordination of Care: Complex Care and Chronic Disease 1-5, Education Complex Pt/Fam, Consent,records obtained, informed consent, Lab and Imaging orders and Staff clarify orders Special Needs: Heart tones Established Patient Charge Established Patient Point Assignment: 135 Established Patient Point Charge: EP Level 4 (120-155) Assessment & Plan Diagnosis / Problem List (1) Encounter for supervision of high risk in second trimester, antepartum: Status: Acute Plan keep appointment with Dr Adkins 06/07, ptl precaution reviewed, hydrate. continue PNV daily. rtc 4 week obc Additional Plan Follow Up: 4 Weeks (obc)
== END 2025-04-26 09:57 | disposition home or self-care (01) ==
LOC: HODSOBC 09:04
PROVIDERS: Supervising Provider Advanced Practice Midwife; Visit Provider Advanced Practice Midwife
DX: O09.92 Supervision of high risk pregnancy, unspecified, second trimester (principal); Z3A.19 19 weeks gestation of pregnancy
CPT/HCPCS: 99214; G0463

== ENCOUNTER 2025-05-23 03:18 | Observation (INO) | payer MEDICAID, SELFPAY ==
[2025-05-23] VITALS (26 sets, daily range): BP systolic 93–134; BP diastolic 52–69; PULSE 70–95; RESP 18–100; TEMP 36.8; O2SAT 97–99; BMI 32.9
== END 2025-05-23 05:30 | disposition home or self-care (01) ==
PROVIDERS: Admitting Provider Obstetrics & Gynecology; Visit Provider Obstetrics & Gynecology
DX: O26.892 Other specified pregnancy related conditions, second trimester (principal); Z3A.24 24 weeks gestation of pregnancy; R10.9 Unspecified abdominal pain
CPT/HCPCS: 59025; 59899

== ENCOUNTER 2025-05-24 10:06 | Outpatient (AMB) | payer MEDICAID, SELFPAY ==
[2025-05-24 10:21] VITALS: BP 106/69; PULSE 94; RESP 18; TEMP 36.4; O2SAT 98; BMI 32.7
--- NOTE | 2025-05-24 10:21 | OBCLNT_ITS ---
Vital Signs 05/24/25 10:21 Height 1.6 m Height Method Stated Weight 83.688 kg Weight Measurement Method Standing Scale BMI 32.7 BP 106/69 Blood Pressure Source Automatic Cuff Blood Pressure Location Right Upper Arm Position Sitting Respiration 18 Pulse 94 Pulse Source Monitor Temp 97.6 F Temp Source Temporal Artery Scan Pulse Oximetry (%) 98 Oxygen Delivery Method Room Air Allergies/Home Meds Allergies & Medications Allergies No Known Allergies Allergy (Verified 05/24/25 10:23) Medication Reconciliation [id number] 3 fatty no.1 27 mg-1 mg-300 mg capsule 1 cap PO QDAY 02/07/25 [History Confirmed 05/24/25] Immunizations Immunizations Flu Vaccine in the Last 12 Months: No Flu Vaccine Exclusion Criteria: No Exclusion Criteria Care OB Visit Log OB Flowsheet Initial Weight: Not Recorded Date -?-?-?-?-?-?-?-?-?-?-?-?- EGA Weight BP Alb Glu CTX Pres Fundal ht FHR Mov Dilation Station Effacement Hx Notes Visit Note 02/24/25 -?-?-?-?-?-?-?-?-?-?-?-?- 11w 0d 77.337 kg 120/79 absent unknown 11 145 absent 20 yo , iup 11w2 for OBI. denies vag bleeding,no cramps, no leaking. no sab complaints, slight nausea schedule MFM jose meg scan. discuss SAB precaution, continue pnv, hydrate. . OB panel with NIPT and carrier screen. rtc 4 wk 03/27/25 -?-?-?-?-?-?-?-?-?-?-?-?- 15w 3d 78.585 kg 120/73 absent unknown 15 145 absent Doing well. Denies SAB complaints. MFM sono is pending. aFP today. Follow-up on MFM appointment. Discussed diet and weight. SAB precautions. Return in 4 weeks OB check 04/26/25 -?-?-?-?-?-?-?-?-?-?-?-?- 19w 5d 81.363 kg 122/75 absent unknown 19 145 active No OB complaints. Denies leaking, bleeding, contractions. Maternal- medicine appointment scheduled for June. Keep chago ointment with Dr. Adkins June 07. Discussed labor precautions. Increase fluids. Continue prenatals. Return in 4 weeks OB check 05/24/25 -?-?-?-?-?-?-?-?-?-?-?-?- 23w 5d 83.688 kg 106/69 absent unknown 23 156 active No OB complaints. Reports movement. Denies leaking, bleeding, contractions. Baby is active per patient Third trimester labs today. Increase fluids. Continue prenatals. Patient has a follow-up Third trimester labs today. Increase fluids. Continue prenatals. Patient DILAN Calculator Estimated Delivery Date Method Current WG Current Estimate 09/15/25 LMP (Certain) 23w 5d Notes Visit Date: 04/26/25 Last Updated by: Franci Lino CNM AFP- Visit Date: 03/27/25 Last Updated by: Franci Lino CNM A+,abs-, rpr;;nr, rub imm, hbsag-, hiv-, hc-, GC/CT-, UT-. + UTI/treated with macrobid, NIPT/carrier screen- Visit Date: 02/24/25 Last Updated by: Franci Lino CNM 20 yo . lmp 12/09/24, EDC: 07/18/24 Office Procedures [facility] LOC & Office Proc's Nursing/Assessment Patient Status: Established Patient OB Clinic Nursing Assessment: Medication Reconciliation, Update PMH in EMR and Vital Signs OB Clinic Coordination of Care: Complex Care and Chronic Disease 1-5, Education Complex Pt/Fam, Consent,records obtained, informed consent, Lab and Imaging orders, Results/Orders obtained and Staff clarify orders Special Needs: Heart tones Established Patient Charge Established Patient Point Assignment: 140 Established Patient Point Charge: EP Level 4 (120-155) Assessment & Plan Diagnosis / Problem List (1) Encounter for supervision of high risk in second trimester, antepartum: Status: Acute Plan Return in 4 weeks OB check. Third trimester labs today. Discussed weight gain and exercise. Patient was given the phone number to follow-up with Dr. Adkins to schedule her anatomy scan. Discussed labor precautions Additional Plan Follow Up: 4 Weeks (obc)
== END 2025-05-24 10:41 | disposition home or self-care (01) ==
LOC: HODSOBC 10:06
PROVIDERS: Supervising Provider Advanced Practice Midwife; Visit Provider Advanced Practice Midwife
DX: O09.92 Supervision of high risk pregnancy, unspecified, second trimester (principal); Z3A.23 23 weeks gestation of pregnancy
CPT/HCPCS: 99214; G0463

== ENCOUNTER 2025-06-21 09:49 | Outpatient (AMB) | payer MEDICAID, SELFPAY ==
--- NOTE | 2025-06-21 10:13 | OBCLNT_ITS ---
Vital Signs 06/21/25 10:14 Height 1.6 m Height Method Stated Weight 83.915 kg Weight Measurement Method Standing Scale BMI 32.8 BP 113/70 Blood Pressure Source Automatic Cuff Blood Pressure Location Left Upper Arm Position Sitting Respiration 16 Pulse 84 Pulse Source Monitor Temp 97.3 F Temp Source Oral Pulse Oximetry (%) 97 Oxygen Delivery Method Room Air Allergies/Home Meds Allergies & Medications Allergies No Known Allergies Allergy (Verified 06/21/25 10:14) Medication Reconciliation [id number] 3 fatty no.1 27 mg-1 mg-300 mg capsule 1 cap PO QDAY 02/07/25 [History Confirmed 06/21/25] Immunizations Immunizations Flu Vaccine in the Last 12 Months: No Flu Vaccine Exclusion Criteria: Refused by Patient Care OB Visit Log OB Flowsheet Initial Weight: Not Recorded Date -?-?-?-?-?-?-?-?-?-?-?-?- EGA Weight BP Alb Glu CTX Pres Fundal ht FHR Mov Dilation Station Effacement Hx Notes Visit Note 02/24/25 -?-?-?-?-?-?-?-?-?-?-?-?- 11w 0d 77.337 kg 120/79 absent unknown 11 145 absent 20 yo , iup 11w2 for OBI. denies vag bleeding,no cramps, no leaking. no sab complaints, slight nausea schedule MFM jose meg scan. discuss SAB precaution, continue pnv, hydrate. . OB panel with NIPT and carrier screen. rtc 4 wk 03/27/25 -?-?-?-?-?-?-?-?-?-?-?-?- 15w 3d 78.585 kg 120/73 absent unknown 15 145 absent Doing well. Denies SAB complaints. MFM sono is pending. aFP today. Follow-up on MFM appointment. Discussed diet and weight. SAB precautions. Return in 4 weeks OB check 04/26/25 -?-?-?-?-?-?-?-?-?-?-?-?- 19w 5d 81.363 kg 122/75 absent unknown 19 145 active No OB complaints. Denies leaking, bleeding, contractions. Maternal- medicine appointment scheduled for June. Keep chago ointment with Dr. Adkins June 07. Discussed labor precautions. Increase fluids. Continue prenatals. Return in 4 weeks OB check 05/24/25 -?-?-?-?-?-?-?-?-?-?-?-?- 23w 5d 83.688 kg 106/69 absent unknown 23 156 active No OB complaints. Reports movement. Denies leaking, bleeding, contractions. Baby is active per patient Third trimester labs today. Increase fluids. Continue prenatals. Patient has a follow-up Third trimester labs today. Increase fluids. Continue prenatals. Patient 06/21/25 -?-?-?-?-?-?-?-?-?-?-?-?- 27w 5d 83.915 kg 113/70 absent unknown 27 156 active No OB complaints. Reports movement. Denies leaking, bleeding, contractions Keep follow-up appointment the end of July with MFM. Discussed labor precautions. We reviewed third trimester labs were normal. Reviewed normal echo return in 4 weeks OB check DILAN Calculator Estimated Delivery Date Method Current WG Current Estimate 09/15/25 LMP (Certain) 27w 5d Notes Visit Date: 06/21/25 Last Updated by: Franci Lino CNM 3rd tri labs wnl. 06/14: ECHO: VSD closed. regular heart rate and rythm Visit Date: 04/26/25 Last Updated by: Franci Lino CNM AFP- Visit Date: 03/27/25 Last Updated by: Franci Lino CNM A+,abs-, rpr;;nr, rub imm, hbsag-, hiv-, hc-, GC/CT-, UT-. + UTI/treated with macrobid, NIPT/carrier screen- Visit Date: 02/24/25 Last Updated by: Franci Lino CNM 20 yo . lmp 12/09/24, EDC: 07/18/24 Office Procedures [facility] Clinic LOC & Office Proc's Nursing/Assessment Patient Status: Established Patient OB Clinic Nursing Assessment: Medication Reconciliation, Update PMH in EMR and Vital Signs OB Clinic Coordination of Care: Complex Care and Chronic Disease 1-5, Consent,records obtained, informed consent, Education Simp Pt/Fam, 1 Ins Authorization, Lab and Imaging orders, Results/Orders obtained and Staff clarify orders Special Needs: Heart tones Established Patient Charge Established Patient Point Assignment: 150 Established Patient Point Charge: EP Level 4 (120-155) Assessment & Plan Diagnosis / Problem List (1) Encounter for supervision of high risk in second trimester, antepartum: Status: Acute Plan Reviewed normal echo. Reviewed third trimester labs and they were normal. Follow-up with MFM in 6 weeks. Discussed labor precautions. Continue prenatals. Return in 4 weeks OB check Additional Plan Follow Up: 4 Weeks (obc)
[2025-06-21 10:14] VITALS: BP 113/70; PULSE 84; RESP 16; TEMP 36.3; O2SAT 97; BMI 32.8
== END 2025-06-21 10:40 | disposition home or self-care (01) ==
LOC: HODSOBC 09:49
PROVIDERS: Supervising Provider Advanced Practice Midwife; Visit Provider Advanced Practice Midwife
DX: O09.92 Supervision of high risk pregnancy, unspecified, second trimester (principal); Z28.21 Immunization not carried out because of patient refusal; Z3A.27 27 weeks gestation of pregnancy
CPT/HCPCS: 99214; G0463